=== PATIENT | female | born 1995 ===

== ENCOUNTER 2018-07-17 08:23 | Emergency (ER) | payer MEDICAID ==
[2018-07-17 08:24] VITALS: BMI 24.0
--- NOTE | 2018-07-17 09:28 | ED PDOC ---
HPI: Female Pain Time Seen by Provider: 07/17/18 09:09 Chief Complaint (Nursing): Female Genitourinary Chief Complaint (Provider): Vaginal bleeding History Per: Patient History/Exam Limitations: no limitations Current Symptoms Are (Timing): Still Present Quality Of Discomfort: Cramping Additional Complaint(s): 22 y/o Female who presents with vaginal bleeding since yesterday. Pt states that she was having abdominal cramping a couple of weeks ago so presented to an ED where she was noted to have a + test. She has continued to have mild cramping since then but noted some pink spotting on toilet paper yesterday when she urinated. She again noted some pink spotting on toilet paper this morning when she wiped. She denies any shravan bleeding or worsening cramping. Denies N/V, diarrhea, dysuria, hesitancy. + urinary frequency. She has not had an ultrasound since she was diagnosed with . Abnormal Vaginal Bleeding: Yes : 1 Para: 0 Miscarriage: 0 Past Medical History Reviewed: Historical Data, Nursing Documentation, Vital Signs Vital Signs: Last Vital Signs Temp 98.1 F 07/17/18 08:24 Pulse 76 07/17/18 08:24 Resp 17 07/17/18 08:24 BP 115/69 07/17/18 08:24 Pulse Ox 99 07/17/18 08:24 - Medical History PMH: No Chronic Diseases - Surgical History Surgical History: No Surg Hx - Family History Family History: States: Unknown Family Hx - Social History Current smoker - smoking cessation education provided: No Ex-Smoker (has not smoked in the last 12 months): Yes (Quit 3 wks ago when found out that she was ) Alcohol: None Drugs: Cannabis (quit when diagnosed with ) - Immunization History Hx Tetanus Toxoid Vaccination: No Hx Influenza Vaccination: No Hx Pneumococcal Vaccination: No - Home Medications Home Medications: Ambulatory Orders Medication Instructions Recorded Famotidine [Pepcid] 20 mg PO BID #10 tab 08/18/17 - Allergies Allergies/Adverse Reactions: Allergies Allergy/AdvReac Type Severity Reaction Status Date / Time No Known Allergies Allergy Verified 08/08/17 20:52 Review of Systems ROS Statement: Except As Marked, All Systems Reviewed And Found Negative Constitutional: Negative for: Fever, Chills Respiratory: Negative for: Shortness of Breath Gastrointestinal: Negative for: Nausea, Vomiting Genitourinary Female: Positive for: Frequency, Vaginal Bleeding, Pelvic Pain (cramping). Negative for: Dysuria, Hematuria, Vaginal Discharge Physical Exam - Reviewed Nursing Documentation Reviewed: Yes Vital Signs Reviewed: Yes - Physical Exam Appears: Positive for: Well Head Exam: Positive for: ATRAUMATIC Skin: Positive for: Normal Color Eye Exam: Positive for: Normal appearance Neck: Positive for: Supple Cardiovascular/Chest: Positive for: Regular Rate, Rhythm Respiratory: Positive for: Normal Breath Sounds Gastrointestinal/Abdominal: Positive for: Normal Exam Neurologic/Psych: Positive for: Alert, Oriented - ECG O2 Sat by Pulse Oximetry: 99 Medical Decision Making Medical Decision Making: Urine dip Transvaginal U/S Beta-HCG, quantitative 12:00 - re-evaluation, no U/S done yet TVUS: The uterus measures 8.0 x 3.7 x 5.7 centimeters. There is intrauterine gestational sac corresponding to 6 weeks and 4 days gestational age with a 4 millimeter pole concordant with the gestational age. heart motion is observed. The ovaries have a normal sonographic appearance. IMPRESSION: Six week live intrauterine gestation. Per my discussion with radiologist, cervix is closed on U/S. Pt given return instructions. Stable for d/c home to f/u with her Customer Service Analyst. Disposition - Clinical Impression Clinical Impression: Vaginal bleeding affecting early - Patient ED Disposition Is Patient to be Admitted: No Counseled Patient/Family Regarding: Studies Performed, Diagnosis, Need For Followup - Disposition Referrals: Dominik Velazquez MD [Staff Provider] - Disposition: Routine/Home Disposition Time: 14:57 Condition: STABLE Additional Instructions: Call your railroad watchman on Thursday to arrange routine f/u for your . Return to ER if you develop shravan vaginal bleeding or worsening abdominal cramping. Instructions: Bleeding With (DC) Forms: [employer] (Bahamian) Print Language: BELARUSIAN
--- NOTE | 2018-07-17 14:30 | US ---
Date of service: 07/17/2018 PROCEDURE: HISTORY: + , vaginal bleeding COMPARISON: TECHNIQUE: FINDINGS: The uterus measures 8.0 x 3.7 x 5.7 centimeters. There is intrauterine gestational sac corresponding to 6 weeks and 4 days gestational age with a 4 millimeter pole concordant with the gestational age. heart motion is observed. The ovaries have a normal sonographic appearance. IMPRESSION: Six week live intrauterine gestation.
[2018-07-17 15:23] VITALS: RESP 18
[2018-07-17 15:24] VITALS: BP 112/62; PULSE 80; TEMP 98.4
[2018-07-19 21:41] VITALS: O2SAT 99
== END 2018-07-17 15:15 | disposition home or self-care (01) ==
LOC: H.ER 08:23
DX: O20.9 Hemorrhage in early pregnancy, unspecified (principal); O26.891 Other specified pregnancy related conditions, first trimester; Z87.891 Personal history of nicotine dependence; Z3A.01 Less than 8 weeks gestation of pregnancy

== ENCOUNTER 2018-08-28 12:51 | Emergency (ER) | payer MEDICAID ==
[2018-08-28 12:51] VITALS: BMI 24.0
--- NOTE | 2018-08-28 13:40 | ED PDOC ---
HPI: Abdomen Time Seen by Provider: 08/28/18 13:18 Chief Complaint (Nursing): Abdominal Pain Chief Complaint (Provider): Abdominal pain History Per: Patient Additional Complaint(s): 22 yo female, no PMH, presents for evaluation of abdominal pain x 1 day, no Vaginal bleeding or LOF. pt is 13 weeks , no nausea or vomiting. no fever or chills. Past Medical History Reviewed: Nursing Documentation, Vital Signs Vital Signs: Last Vital Signs Temp 98.3 F 08/28/18 12:59 Pulse 98 H 08/28/18 12:59 Resp 20 08/28/18 12:59 BP 155/76 H 08/28/18 12:59 Pulse Ox 98 08/28/18 12:59 - Medical History PMH: No Chronic Diseases - Surgical History Surgical History: No Surg Hx - Family History Family History: States: Unknown Family Hx - Living Arrangements Living Arrangements: With Family - Immunization History Hx Tetanus Toxoid Vaccination: No Hx Influenza Vaccination: No Hx Pneumococcal Vaccination: No - Home Medications Home Medications: Ambulatory Orders Medication Instructions Recorded Famotidine [Pepcid] 20 mg PO BID #10 tab 08/18/17 - Allergies Allergies/Adverse Reactions: Allergies Allergy/AdvReac Type Severity Reaction Status Date / Time No Known Allergies Allergy Verified 08/28/18 12:59 Review of Systems ROS Statement: Except As Marked, All Systems Reviewed And Found Negative Gastrointestinal: Positive for: Abdominal Pain Physical Exam - Reviewed Nursing Documentation Reviewed: Yes Vital Signs Reviewed: Yes - Physical Exam Appears: Positive for: Well, Non-toxic, No Acute Distress Head Exam: Positive for: ATRAUMATIC, NORMAL INSPECTION, NORMOCEPHALIC Skin: Positive for: Normal Color, Warm, DRY Eye Exam: Positive for: EOMI, Normal appearance, PERRL ENT: Positive for: Normal ENT Inspection Neck: Positive for: Normal, Painless ROM Cardiovascular/Chest: Positive for: Regular Rate, Rhythm Respiratory: Positive for: CNT, Normal Breath Sounds Gastrointestinal/Abdominal: Positive for: Normal Exam, Soft Back: Positive for: Normal Inspection Extremity: Positive for: Normal ROM Neurologic/Psych: Positive for: Alert, Oriented - ECG O2 Sat by Pulse Oximetry: 98 Medical Decision Making Medical Decision Making: Dip (-) blood, leuks or nites US results reviewed with pt who demonstrated full understanding Pt doing well on re-eval, offers no complaints. stable for discharge home at this time. Advised to follow up with OB Disposition - Clinical Impression Clinical Impression: Abdominal pain during - Patient ED Disposition Is Patient to be Admitted: No - Disposition Disposition: Routine/Home Disposition Time: 17:33 Condition: STABLE Instructions: Stomach Pain in Early Forms: [employer] (Turkmen)
[2018-08-28 15:07] LABS: SQUAMOUS EPITHIAL 17 /hpf (0-5); URINE BACTERIA RARE (<OCC); URINE BILIRUBIN NEGATIVE (NEGATIVE); URINE BLOOD NEGATIVE (NEGATIVE); URINE CLARITY CLOUDY (Clear); URINE COLOR AMBER (YELLOW); URINE GLUCOSE (UA) NEG (NEGATIVE); URINE LEUKOCYTE ESTERASE MOD Leu/uL (Negative); URINE PROTEIN 30 mg/dL (NEGATIVE); URINE UROBILINOGEN 0.2-1.0 mg/dL (0.2-1.0)
--- NOTE | 2018-08-28 17:33 | US ---
Date of service: 08/28/2018 PROCEDURE: OB Pelvic Ultrasound HISTORY: pain, 13 w preg LMP: 05/23/2018 COMPARISON: Pelvic ultrasound dated 07/17/2018. FINDINGS: UTERUS: Gestational sac: Single intrauterine gestation. Measures 5.4 cm compatible with estimated gestational age of 11 weeks, 2 days Yolk sac: Not visualized pole: Gerber-rump length measures 5.3 cm compatible with estimated gestational age of 12 weeks, 0 days Heart rate: 168 bpm. age (Ultrasound estimated): 11 weeks, 5 days Marleny-gestational hemorrhage: None. Date of delivery (Ultrasound estimated) : 03/14/2019 Uterus measures 12.1 x 8.9 x 7.3 cm. Anteverted. Normal in size and appearance. CERVIX: Measures 3.1 cm. Long and closed. No cervical abnormality seen. RIGHT OVARY: Measures 3.2 x 3.0 x 2.2 cm. No mass lesion. Normal flow. LEFT OVARY: Measures 2.4 x 2.0 x 1.3 cm. No solid mass. Normal flow. FREE FLUID: None. OTHER FINDINGS: None. IMPRESSION: Single live intrauterine gestation with average ultrasound age of 11 weeks, 5 days. heart rate 168 beats per minute. Cervix long hand closed.
[2018-08-29 07:10] VITALS: BP 118/77; PULSE 84; RESP 18; TEMP 98.7; O2SAT 100
== END 2018-08-28 17:35 | disposition home or self-care (01) ==
LOC: H.ER 12:51
DX: O26.899 Other specified pregnancy related conditions, unspecified trimester (principal)

== ENCOUNTER 2018-10-19 10:29 | Emergency (ER) | payer MEDICAID, OTHER ==
[2018-10-19 10:29] VITALS: BMI 24.0
[2018-10-19 10:38] VITALS: TEMP 98.3
[2018-10-19 11:36] LABS: BASO % 0.3 % (0.0-2.0); EOS # 0.2 K/uL (0.0-0.7); HEMOGLOBIN 11.8 g/dL (12.0-16.0); LYMPH # 1.4 K/uL (1.0-4.3); LYMPH % 12.8 % (20.0-40.0); MEAN CELL VOLUME 86.8 fl (81.0-99.0); MEAN CORPUSCULAR HEMOGLOBIN 29.2 pg (27.0-31.0); MEAN CORPUSCULAR HGB CONC 33.7 g/dL (33.0-37.0); MEAN PLATELET VOLUME 9.9 fl (7.2-11.7); MONO # 0.7 K/uL (0.0-0.8); MONO % 6.8 % (0.0-10.0); NEUT # 8.6 K/uL (1.8-7.0); NEUT % 78.1 % (50.0-75.0); RBC 4.03 Mil/uL (3.80-5.20)
[2018-10-19] MEDS: Sodium Chloride 0.9% 1,000 ML IV STA (11:37)
--- NOTE | 2018-10-19 11:38 | ED PDOC ---
Upper Extremity Pain/Injury Chief Complaint (Nursing): Upper Extremity Problem/Injury History Per: Patient Onset/Duration Of Symptoms: Gradual (1 month) Additional Complaint(s): Pt is a 23 y/o female with IUP 24 weeks gestation, presents to ED with complaints of bilateral shoulder pain radiating to fingers and associated numbness and tingling ("pins and needles") in 3rd and 4th digit bilaterally. States this has has been going on for 1 month now with no improvement. 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 Her symptoms are worse when elevating her arms above her head. She denies any neck pain, recent neck trauma, headaches, recent massages/chiropractor visit, back pain or other joint/nerve involvement. Otherwise denies pelvic pain, vaginal bleeding, or no concerns regarding her . PMD: Luigi Chicas: Dr. Velazquez PMHX: Denies Meds: PNV Taking PNV Past Medical History Reviewed: Historical Data, Nursing Documentation, Vital Signs Vital Signs: Last Vital Signs Temp 98.3 F 10/19/18 10:36 Pulse 89 10/19/18 10:36 Resp 16 10/19/18 10:36 BP 129/72 10/19/18 10:36 Pulse Ox 100 10/19/18 10:36 - Medical History PMH: No Chronic Diseases Denies: Chronic Kidney Disease - Family History Family History: States: Unknown Family Hx - Immunization History Hx Tetanus Toxoid Vaccination: No Hx Influenza Vaccination: No Hx Pneumococcal Vaccination: No - Home Medications Home Medications: Ambulatory Orders Medication Instructions Recorded Famotidine [Pepcid] 20 mg PO BID #10 tab 08/18/17 - Allergies Allergies/Adverse Reactions: Allergies Allergy/AdvReac Type Severity Reaction Status Date / Time No Known Allergies Allergy Verified 08/28/18 12:59 Review of Systems Constitutional: Negative for: Fever, Chills Cardiovascular: Negative for: Chest Pain Respiratory: Negative for: Cough Gastrointestinal: Negative for: Nausea, Vomiting, Abdominal Pain Musculoskeletal: Positive for: Shoulder Pain, Hand Pain. Negative for: Neck Pain, Back Pain Neurological: Positive for: Numbness Physical Exam - Physical Exam Appears: Positive for: No Acute Distress Head Exam: Positive for: ATRAUMATIC Skin: Positive for: Normal Color Eye Exam: Positive for: Normal appearance, EOMI, PERRL Neck: Positive for: Painless ROM, Supple, See Diagram (+ Spurlings test ) Cardiovascular/Chest: Positive for: Regular Rate, Rhythm Respiratory: Positive for: Normal Breath Sounds. Negative for: Crackles, Rales, Wheezing Pulses-Carotid (L): 2+ Pulses-Carotid (R): 2+ Pulses-Radial (L): 2+ Pulses-Radial (R): 2+ Gastrointestinal/Abdominal: Positive for: Normal Exam (Gravid, consistent with 19 wk ), Soft. Negative for: Tenderness Extremity: Positive for: Normal ROM, Capillary Refill Neurological/Psych: Positive for: Awake, Alert - Laboratory Results Result Diagrams: 10/19/18 11:30 10/19/18 11:30 - ECG O2 Sat by Pulse Oximetry: 100 Medical Decision Making Medical Decision Making: Pt is a 23 y/o female with IUP 24 weeks gestation, presents to ED with compl aints of bilateral shoulder pain radiating to fingers and associated numbness and tingling ("pins and needles") in 3rd and 4th digit bilaterally. History and exam suggestive of cervical radiculopathy disease. MRI- cervical w/o contrast CBC, CMP, Mag, Phos Tylenol po IV Fluids Doppler bedside- [facility] 154 Dr. Mendoza will f/u MRI Disposition - Clinical Impression Clinical Impression: Shoulder pain, bilateral, Numbness and tingling in both hands - Patient ED Disposition Is Patient to be Admitted: Transfer of Care Discussed With : Alley Mendoza - Disposition Disposition Time: 13:04 Condition: IMPROVED Forms: [employer] (Belarusian)
[2018-10-19 12:03] LABS: ALB/GLOB RATIO 1.1 (1.0-2.1); ALBUMIN 3.8 g/dL (3.5-5.0); ALT/SGPT 31 U/L (9-52); AST/SGOT 21 U/L (14-36); BLOOD UREA NITROGEN 7 mg/dl (7-17); CALCIUM 9.4 mg/dL (8.4-10.2); GFR NON-AFRICAN AMERICAN > 60
--- NOTE | 2018-10-19 12:59 | ED PDOC ---
- Laboratory Results Result Diagrams: 10/19/18 11:30 10/19/18 11:30 Lab Results: Total Bilirubin 0.2 mg/dl (0.2-1.3) 10/19/18 11:30 AST 21 U/L (14-36) 10/19/18 11:30 ALT 31 U/L (9-52) 10/19/18 11:30 Alkaline Phosphatase 58 U/L (38-126) 10/19/18 11:30 Total Protein 7.2 G/DL (6.3-8.2) 10/19/18 11:30 Albumin 3.8 g/dL (3.5-5.0) 10/19/18 11:30 Globulin 3.4 gm/dL (2.2-3.9) 10/19/18 11:30 Albumin/Globulin Ratio 1.1 (1.0-2.1) 10/19/18 11:30 - ECG O2 Sat by Pulse Oximetry: 100 (RA) Pulse Ox Interpretation: Normal Medical Decision Making Medical Decision Makin Patient signed out to me pending MRI, reassessment. - Scribe Attestation: Documented by Shelbi Pittman acting as a scribe for Alley Mendoza MD. Provider Attestation: All medical record entries made by the Scribe were at my direction and personally dictated by me. I have reviewed the chart and agree that the record accurately reflects my personal performance of the history, physical exam, medical decision making, and the department course for this patient. I have also personally directed, reviewed, and agree with the discharge instructions and disposition. Disposition - Clinical Impression Clinical Impression: Shoulder pain, bilateral, Numbness and tingling in both hands - POA Present On Arrival: None - Disposition Referrals: Jhoan Johnson MD [Medical Doctor] - Disposition: Routine/Home Disposition Time: 10:20 Condition: IMPROVED Additional Instructions: Labs and MRI show no acute abnormalities. Take Tylenol for pain. Follow up with primary medical doctor and pediatric speech therapist as needed. Follow up with neurologist as needed. Instructions: Paresthesias (DC) Forms: [employer] (Georgian) Print Language: JAPANESE
--- NOTE | 2018-10-19 15:46 | MRI ---
Date of service: 10/19/2018 PROCEDURE: MR CERVICAL SPINE WITHOUT CONTRAST HISTORY: tingles to arms COMPARISON: None available. TECHNIQUE: Multiecho multiplanar sequences were performed through the cervical spine without the use of intravenous contrast. FINDINGS: Limited reversal of cervical curvature. Craniocervical junction unremarkable. Vertebral body heights preserved. No marrow signal abnormality. Normal cervical cord. Motion related truncation artifacts are appreciated scattered over the cervical and upper thoracic spinal cord occasionally, down to the upper T2 endplate level. No prevertebral or paraspinal abnormality. C2-C3: No disc herniation, spinal canal stenosis or neural foraminal narrowing. C3-C4: No disc herniation, spinal canal stenosis or neural foraminal narrowing. Minimal posterior disc bulge identified. C4-C5: No disc herniation, spinal canal stenosis or neural foraminal narrowing. Minimal posterior disc bulge identified. C5-C6: No disc herniation, spinal canal stenosis or neural foraminal narrowing. Minimal posterior disc bulge identified. C6-C7: No disc herniation, spinal canal stenosis or neural foraminal narrowing. C7-T1: No disc herniation, spinal canal stenosis or neural foraminal narrowing. OTHER FINDINGS: None. IMPRESSION: Slight reversal cervical curvature. No disc herniation, central canal or neural foraminal stenosis appreciable. Minimal upper upper to mid multilevel cervical disc bulges identified without resulting stenosis. No suspicious cord signal abnormality identified.
[2018-10-19 17:38] VITALS: BP 121/71; PULSE 88; RESP 18
[2018-10-21 05:00] VITALS: O2SAT 100
== END 2018-10-19 17:20 | disposition home or self-care (01) ==
LOC: H.ER 10:29
DX: R20.2 Paresthesia of skin (principal); M25.512 Pain in left shoulder; M25.511 Pain in right shoulder
CPT/HCPCS: 72141; 80053; 81025; 82948; 83735; 84100; 85025; 96360; 99284; J7030

== ENCOUNTER 2018-12-29 15:01 | Emergency (ER) | payer MEDICAID, OTHER ==
[2018-12-29 15:17] VITALS: BMI 33.0
[2018-12-29] MEDS ORDERED: Lactated Ringer's 1,000 ML IV SCH ×2 (15:45→17:45)
[2018-12-29 17:52] LABS: HEMOGLOBIN 11.2 g/dL (12.0-16.0); MEAN CELL VOLUME 86.8 fl (81.0-99.0); MEAN CORPUSCULAR HGB CONC 33.5 g/dL (33.0-37.0); RBC 3.87 Mil/uL (3.80-5.20); RED CELL DISTRIBUTION WIDTH 13.6 % (11.5-14.5); WHITE BLOOD COUNT 11.2 K/uL (4.8-10.8)
[2018-12-29 18:11] LABS: ALB/GLOB RATIO 1.2 (1.0-2.1); ALBUMIN 3.7 g/dL (3.5-5.0); ALT/SGPT 21 U/L (9-52); AST/SGOT 26 U/L (14-36); BILIRUBIN,DIRECT 0.3 mg/ml (0.0-0.4); BLOOD UREA NITROGEN 5 mg/dl (7-17); GFR NON-AFRICAN AMERICAN > 60
[2018-12-29 23:38] VITALS: BP 102/63; PULSE 94; O2SAT 99
== END 2018-12-29 18:35 | disposition home or self-care (01) ==
LOC: H.EROB2 15:01
DX: O21.0 Mild hyperemesis gravidarum (principal); Z3A.29 29 weeks gestation of pregnancy
CPT/HCPCS: 80053; 85027; 96361; 96374; 99283; J2405; J7120